=== PATIENT | female | born 1995 | race Caucasian/White ===

== ENCOUNTER 2020-09-20 20:21 | Emergency (ER) | payer OTHER ==
--- NOTE | 2020-09-20 20:53 | NUR ---
CALLED OUT PTS NAME 3X. NO RESPONSE. WILL TRY AGAIN LATER.
--- NOTE | 2020-09-20 21:16 | NUR ---
CALLED PT 3X AGAIN, NO RESPONSE. CHARGE NURSE AWARE.
--- NOTE | 2020-09-20 21:17 | NUR ---
PATIENT LEFT WITHOUT BEING SEEN BY DR. GEORGES. NO FURTHER CARE PROVIDED FOR PATIENT.
== END 2020-09-20 20:53 | disposition left against medical advice (07) ==
LOC: MED 20:21
DX: Z53.21 Procedure and treatment not carried out due to patient leaving prior to being seen by health care provider (principal)

== ENCOUNTER 2020-11-12 23:39 | Emergency (ER) | payer OTHER ==
[~2020-11-12] VITALS: Ht 167.6 cm; Wt 51.3 kg
[2020-11-13 00:02] VITALS: BP 137/83
--- NOTE | 2020-11-13 00:02 | NUR ---
to bed ambulatory
[2020-11-13] MEDS ORDERED: METOCLOPRAMIDE 10 MG/2 ML INJ VIAL IM ONE (00:15)
--- NOTE | 2020-11-13 00:15 | NUR ---
RECEIVED IN BED 11 WITH C/O HEAD PAIN X 2 DAYS. PT STATES SHE WAS WORKING OUT AND FELT A POP IN HER HEAD. WAS SEEN AT ANOTHER HOSPITAL, HAD CT SCAN WHICH WAS "NORMAL".
[2020-11-13 01:45] VITALS: BP 137/83
--- NOTE | 2020-11-13 01:45 | NUR ---
Patient discharged with v/s stable. Written and verbal after care instructions given and explained. Patient verbalized understanding. Ambulatory with steady gait. All questions addressed prior to discharge. Advised to follow up with PMD.
== END 2020-11-13 01:45 | disposition home or self-care (01) ==
LOC: MED 23:39
DX: B34.9 Viral infection, unspecified (principal); R51.9 Headache, unspecified; J45.909 Unspecified asthma, uncomplicated
CPT/HCPCS: 96372; 99283; J2765

== ENCOUNTER 2022-07-03 00:43 | Emergency (ER) | payer OTHER ==
--- NOTE | 2022-07-03 01:28 | NUR ---
CALLED, NO ANSWER
== END 2022-07-03 01:28 | disposition left against medical advice (07) ==
LOC: MED 00:43
DX: J45.901 Unspecified asthma with (acute) exacerbation (principal); Z53.21 Procedure and treatment not carried out due to patient leaving prior to being seen by health care provider

== ENCOUNTER 2024-01-05 22:11 | Emergency (ER) | payer OTHER ==
[~2024-01-05] VITALS: Ht 157.5 cm; Wt 58.1 kg
[2024-01-05 22:16] VITALS: BP 119/68; PULSE 92; RESP 20; TEMP 97.2; O2SAT 99
[2024-01-05] MEDS: KETOROLAC 30 MG/ML VIAL IM ONE (22:59)
[2024-01-05] MEDS ORDERED: LIDO100S PO (23:13)
== END 2024-01-05 23:23 | disposition home or self-care (01) ==
LOC: MED 22:11
DX: K08.89 Other specified disorders of teeth and supporting structures (principal); J45.909 Unspecified asthma, uncomplicated; Z79.899 Other long term (current) drug therapy
CPT/HCPCS: 81025; 96372; 99283; J1885

== ENCOUNTER 2024-01-06 16:20 | Emergency (ER) | payer OTHER ==
[~2024-01-06] VITALS: Ht 157.5 cm; Wt 58.1 kg
[~2024-01-06 16:20] MED LIST: LIDO100S PO
[2024-01-06 16:29] VITALS: BP 120/67; PULSE 80; RESP 16; TEMP 98.6; O2SAT 100
[2024-01-06 16:57] VITALS: PULSE 80; RESP 16; TEMP 98.6; O2SAT 100
== END 2024-01-06 17:03 | disposition left against medical advice (07) ==
LOC: MED 16:20
DX: M79.10 Myalgia, unspecified site (principal); J45.909 Unspecified asthma, uncomplicated; Z53.21 Procedure and treatment not carried out due to patient leaving prior to being seen by health care provider

== ENCOUNTER 2024-01-09 13:29 | Emergency (ER) | payer OTHER ==
[~2024-01-09] VITALS: Ht 157.5 cm; Wt 57.2 kg
[2024-01-09 13:57] VITALS: BP 113/62; PULSE 82; RESP 16; TEMP 97.9; O2SAT 100
[2024-01-09] MEDS ORDERED: LIDO100S PO (14:28)
== END 2024-01-09 15:07 | disposition home or self-care (01) ==
LOC: MED 13:29
DX: K08.89 Other specified disorders of teeth and supporting structures (principal); J45.909 Unspecified asthma, uncomplicated; Z79.899 Other long term (current) drug therapy
CPT/HCPCS: 99283